=== PATIENT | male | born 1980 | race Caucasian/White ===

== ENCOUNTER → 2017-08-24 11:01 | Outpatient (CLI) | payer OTHER, SELFPAY | PROVIDERS: Family Provider Family Medicine; PCP Family Medicine; Visit Provider Internal Medicine | DX: R20.2 Paresthesia of skin (principal) | CPT/HCPCS: 95886; 95911 ==

== ENCOUNTER → 2018-08-17 12:13 | Outpatient (CLI) | payer OTHER, SELFPAY ==
--- NOTE | 2018-08-17 12:14 | DI.RAD.S_ITS ---
PROCEDURE: XR CHEST 2V INDICATIONS: Right rib pain TECHNIQUE: 2 views of the chest were acquired. COMPARISON: None. FINDINGS: Surgical changes and devices: None. Lungs and pleura: No convincing focal airspace disease. No pleural effusions or pneumothorax. Mediastinum: Mediastinal contours are normal. Heart size is normal. Bones and chest wall: Mild contour irregularity lateral aspect of the right sixth rib. IMPRESSION: 1. Mild contour irregularity of the lateral aspect of the right sixth rib; correlation with point tenderness and prior history of trauma or thoracic surgery suggested. 2. No convincing focal airspace disease. Dictated by: Adriano Johnson M.D. on 08/17/2018 at 13:09 Approved by: Adriano Johnson M.D. on 08/17/2018 at 13:13
== END ==
PROVIDERS: Visit Provider Registered Nurse
DX: R07.81 Pleurodynia (principal)
CPT/HCPCS: 71046

== ENCOUNTER → 2020-11-13 13:52 | Outpatient (CLI) | payer OTHER, SELFPAY ==
--- NOTE | 2020-11-13 13:53 | DI.RAD.S_ITS ---
PROCEDURE: XR CERVICAL SPINE 2V OR 3V INDICATIONS: neck pain TECHNIQUE: 3 view(s) of the cervical spine were acquired. COMPARISON: None. FINDINGS: Bones: No fractures or dislocations to the T1 level. The lateral masses of C1 appear intact on the odontoid view. No suspicious bony lesions. Soft tissues: No prevertebral soft tissue swelling. IMPRESSION: Normal C-spine. Dictated by: Jacky Jarrett [facility] Interpreted: Zack Kumar MD on 11/13/2020 at 14:04 Transcribed by: KELLY on 11/13/2020 at 14:04 Approved by: Zack Kumar M.D. on 11/13/2020 at 16:55
== END ==
PROVIDERS: Referring Provider Registered Nurse; Visit Provider Registered Nurse
DX: M54.2 Cervicalgia (principal)
CPT/HCPCS: 72040

== ENCOUNTER → 2022-03-30 14:17 | Outpatient (CLI) | payer OTHER, SELFPAY ==
[2022-03-30 14:59] LABS: Semen Sperm Prescence Post-Vas Present (ABSENT)
== END ==
PROVIDERS: PCP Pediatrics; Referring Provider Family Medicine; Visit Provider Family Medicine
DX: Z30.2 Encounter for sterilization (principal)
CPT/HCPCS: 89321

== ENCOUNTER 2024-10-05 17:54 | Emergency (ER) | payer OTHER, SELFPAY ==
[2024-10-05 17:56] VITALS: BP 149/87; PULSE 102; RESP 20; TEMP 36.6; O2SAT 97; BMI 29.2
--- NOTE | 2024-10-05 18:04 | DI.RAD.S_ITS ---
PROCEDURE: XR FINGER LT MIN 2V INDICATIONS: Struck pointer finger with hatchet TECHNIQUE: AP hand, 2 views of the 2nd finger(s) acquired. COMPARISON: None. FINDINGS AND IMPRESSION: No acute displaced fracture or dislocation is seen. Suspected soft tissue injury of the index finger. If there is high concern for occult injury, consider repeat radiography in about 7 days or cross-sectional imaging. Dictated by: Sabas Rajan M.D. on 10/05/2024 at 17:57 Approved by: Sabas Rajan M.D. on 10/05/2024 at 17:58
[2024-10-05] MEDS: LIDOCAINE 1% (PF) 5 ML INJ (23:08)
--- NOTE | 2024-10-06 00:19 | ED.UPPEXIN ---
HPI - Extremity Injury (Upper) General Chief Complaint: Extremity Injury, Upper Stated Complaint: Lt index finger wound Time Seen by Provider: 10/05/24 22:33 Source: patient Mode of arrival: Ambulatory History of Present Illness HPI narrative: 44-year-old male cut left index finger with hatchet cutting tingling would earlier today 5:30 p.m., had bleeding controlled with direct pressure. No other injuries. Last tetanus update he believes was less than 5 years ago. Can move his finger well, no numbness. Related Data Home Medications ?Medication ?Instructions ?Recorded ?Confirmed No Known Home Medications 08/17/23 08/17/23 Allergies Allergy/AdvReac Type Severity Reaction Status Date / Time No Known Drug Allergies Allergy Verified 10/05/24 17:56 Patient History Medical History Well adult exam Achilles tendinitis of left lower extremity Adult general medical exam Medication management Neck pain Hypercholesterolemia Surgical History Cougar teeth extracted Family History Brother Age: 45 Hypertension Mother Age: 75 Hyperlipidemia Hypertension Social History Smoking Status: Never smoker alcohol intake: current substance use type: marijuana Smoking Status: Never smoker Exam Narrative Exam Narrative: GENERAL: Well-developed patient, in mild distress. HEAD: Atraumatic. Normocephalic. EYES: Pupils equal round and reactive. Extraocular motions intact. No scleral icterus. No injection or drainage. ENT: Nose without bleeding, purulent drainage. Throat without erythema, tonsillar hypertrophy or exudate. Airway patent. NECK: Trachea midline. Non tender CARDIOVASCULAR: Regular rate and rhythm without murmurs, gallops, or rubs. RESPIRATORY: Clear to auscultation. Breath sounds equal bilaterally. No wheezes, rales, or rhonchi. GASTROINTESTINAL: Abdomen soft, non-tender, nondistended. EXTREMITIES: Left index finger with radial aspect laceration 1.5 cm axial plane, up to the midline dorsal, could not visualize any tendinous structures, no bony structures or joint structures visualized, no obvious foreign bodies. BACK: Nontender without deformity or crepitance. No flank tenderness. NEURO: AOx3. Motor functions grossly nonfocal. SKIN: No rash or erythema of visible areas Initial Vital Signs Initial Vital Signs: Vital Signs Temperature 97.8 F 10/05/24 17:56 Pulse Rate 102 H 10/05/24 17:56 Respiratory Rate 20 10/05/24 17:56 Blood Pressure 149/87 H 10/05/24 17:56 Pulse Oximetry 97 10/05/24 17:56 Oxygen Delivery Method Room Air 10/05/24 17:56 Procedures Laceration Repair Laceration 1: Site: hand (Index finger medial aspect, no obvious tendon injury. No visible joint or foreign body or bone or tendinous structures.) Side (If applicable): left Size (cm): 1.5 Description: linear Depth: simple, single layer Local Anesthetic: lidocaine 1% Amount of anesthesia used (mL): 4 Skin layer closed with: nylon Skin layer suture size: 5-0 Number of sutures: 5 Course Orders Ordered: Discontinued Medications Bacitracin (Bacitracin Oint 0.9 Gm Pckt) 1 applic TOP NOW ONE Stop: 10/06/24 00:55 Last Admin: 10/06/24 01:13 Dose: 1 applic Documented By: MARY Lidocaine HCl (Lidocaine 1% (Pf) 5 Ml) 5 ml INJ NOW ONE Stop: 10/05/24 23:05 Last Admin: 10/05/24 23:08 Dose: 5 ml Documented By: MARY Vital Signs Vital signs: Vital Signs - 8 hr 10/05/24 17:56 Temperature 97.8 F Pulse Rate 102 H Respiratory Rate 20 Blood Pressure 149/87 H Pulse Oximetry 97 Oxygen Delivery Method Room Air MDM - Extremity Injury (Upper) Imaging Data Extremity x-ray #1: Radiologist's Impression: [address] [address] XRay Report Signed Patient: Dwayne Lentz MR#: [id number] : 1980 Acct:[id number] Age/Sex: 44 / M Date of Service: 10/05/24 Loc: ED Accession Number: [id number] Procedure: XR finger LT min 2V Ordering Provider: Garrett Reddy MD PROCEDURE: XR FINGER LT MIN 2V INDICATIONS: Struck pointer finger with hatchet TECHNIQUE: AP hand, 2 views of the 2nd finger(s) acquired. COMPARISON: None. FINDINGS AND IMPRESSION: No acute displaced fracture or dislocation is seen. Suspected soft tissue injury of the index finger. If there is high concern for occult injury, consider repeat radiography in about 7 days or cross-sectional imaging. Dictated by: Sabas Rajan M.D. on 10/05/2024 at 17:57 Approved by: Sabas Rajan M.D. on 10/05/2024 at 17:58 [facility] Narrative Medical decision making narrative: Index finger laceration, repair primary closure, see procedure note. Tetanus reportedly up-to-date. Tolerated procedure well. Finger splint applied, antibiotics ointment and dressing and Coban wrap to adjacent finger per nursing. Discharged home. Advised wound check 2 days. Suture removal likely 7-10 days. Discharged home. Discharge Plan Departure Patient Disposition: Home Clinical Impression: Finger laceration Activity Restrictions/Additional Instructions: Finger laceration sustained earlier today cutting kindling. Laceration to index finger left side. X-rays without obvious fracture or foreign bodies. Laceration did extend up toward the top part of the finger, but I could not see any structures at looked to be tendinous injury, nor any bony or joint like structures, nor any foreign bodies. Full extension normal tendon function. It is possible to have partial tendon injury that can progress to full tendon injury once loaded at some later date, that we would not want to extend the wound to further explore for that possibility. Consider further follow up with Orthopedic surgery for further evaluation in follow up. Clinic contact information provided. Finger splint applied, dressing applied, Coban wrap to the adjacent finger. Suture removal likely 7-10 days anticipated. Prescriptions: No Action No Known Home Medications Referrals: Eladio Montenegro DO [Primary Care Provider, Family Practice] Sivan Renee DO [Physician, Orthopedic Surgery] Stand Alone Forms: Patient Portal/API
[2024-10-06] MEDS: BACITRACIN OINT 0.9 GM PCKT 1 APPLIC TOP (01:13)
== END 2024-10-06 01:14 | disposition home or self-care (01) ==
PROVIDERS: Emergency Provider Emergency Medicine; PCP Family Medicine
DX: S61.211A Laceration without foreign body of left index finger without damage to nail, initial encounter (principal); W26.9XXA Contact with unspecified sharp object(s), initial encounter
CPT/HCPCS: 12001; 73140; 99283